=== PATIENT | female | born 1995 | race African-American/Black ===

== ENCOUNTER 2018-08-19 21:13 | Observation (INO) | payer OTHER ==
[~2018-08-19] VITALS: Ht 165.1 cm; Wt 82.2 kg
[2018-08-19 21:19] VITALS: BP 115/68
--- NOTE | 2018-08-19 21:23 | NUR ---
PER ER MD VENTURA, SANDY TO SEE IN ED.
--- NOTE | 2018-08-19 21:23 | NUR ---
23 Y/O FEMALE PRESENTS TO ED WITH C/O OF SORE THROAT X5 DAYS, EPIGASTRIC/SUPRAPUBIC ABD PAIN X2 HRS. 7/10 THROAT PAIN, 3/10 ABD PAIN. ABD PAIN NON-RADIATING. VSS. ALSO C/O NAUSEA WITHOUT VOMITING. PT STATES ABD PAIN STARTED 2 HRS AGO AND HAS NOT FEELT BABY MOVE IN THE PAST TWO HOURS BUT DID FEEL BABY MOVING PRIOR TO ABD PAIN AND NAUSEA. NO VAGINAL BLEEDING OR DISCHARGE. THROAT RED, WITH EDEMA AND EXUDATE. DR VENTURA AT BEDSIDE EVALUATING PT. CONTINUE TO MONITOR.
--- NOTE | 2018-08-19 21:25 | NUR ---
PT TAKEN TO BED 10
--- NOTE | 2018-08-19 21:38 | NUR ---
Dr. Martinez examining patient.
[2018-08-19] MEDS ORDERED: AMOXICILLIN 500 MG CAP PO ONE (21:45)
--- NOTE | 2018-08-19 22:05 | NUR ---
L&D CALLED AND NOTIFIED THAT DR VENTURA HAS DISCHARGED PT AND IS SENDING HER OVER TO L&D FOR FURTHER EVALUATION AT THIS TIME. DC PAPERS GIVEN TO PT. RX OF AMOXICILLIN GIVEN. SIDE EFFECTS EXPLAINED. PT STATES PAIN IS TOLLERABLE AT THIS TIME AND NAUSEA IS MILD. INSTRCUTED TO F/U WITH PVP AND WHEN TO RETURN TO ER. PT VERBALIZED UNDERSTANDING OF DC INSTRUCTIONS. PT ESCORTED TO L&D VIA WHEEL CHAIR BY NURSE.
--- NOTE | 2018-08-19 22:07 | NUR ---
PT TRANSFERED TO L&D AFTER SCREENING AND TREATMENT IN THE ER BY DR. Maria Isabel VENTURA
[2018-08-19] MEDS ORDERED: TERBUTALINE 1 MG/ML VIAL SUBQ SCH (22:50)
[2018-08-19 22:58] LABS: APPEARANCE,URINE CLEAR (CLEAR); BILIRUBIN,URINE NEGATIVE (NEGATIVE); BLOOD, URINE 2+ (NEGATIVE); COLOR,URINE YELLOW (YELLOW); LEUKOCYTE ESTERASE ,URINE NEGATIVE (NEGATIVE); NITRITE, URINE NEGATIVE (NEGATIVE); UGLUCOSE NEGATIVE (NEGATIVE)
[2018-08-19] MEDS ORDERED: TERBUTALINE 1 MG/ML VIAL SUBQ ONE (23:05)
[2018-08-19 23:11] LABS: BASOPHILS % (AUTO) 0.5 % (0.0-2.0); EOSINOPHILS # (AUTO) 0.1 K/uL (0-0.4); EOSINOPHILS % (AUTO) 1.2 % (0.0-4.0); HEMATOCRIT 30.1 % (36-48); HEMOGLOBIN 10.1 g/dL (12.0-16.0); LYMPHOCYTES # (AUTO) 2.5 K/uL (2.5-16.5); LYMPHOCYTES % (AUTO) 26.1 % (20.5-51.1); MEAN CORPUSCULAR HEMOGLOBIN 30 pg (27-31); MEAN CORPUSCULAR HGB CONC 34 g/dL (33-37); MEAN CORPUSCULAR VOLUME 90.1 fL (80-94); MONOCYTES # (AUTO) 1.1 K/uL (0.8-1.0); MONOCYTES % (AUTO) 11.2 % (1.7-9.3); NEUTROPHILS # (AUTO) 5.7 K/uL (1.8-7.7); PLATELET COUNT (AUTO) 252 K/uL (140-450); RED BLOOD CELL COUNT(AUTO) 3.34 MIL/uL (4.20-5.40); RED CELL DISTRIBUTION WIDTH 13.4 % (11.6-13.7); WHITE BLOOD COUNT (AUTO) 9.4 K/uL (4.8-10.8)
[2018-08-19 23:33] VITALS: BP 106/57
[2018-08-19 23:48] LABS: WBC,URINE 0-5 /HPF (0-5)
== END 2018-08-20 01:15 | disposition home or self-care (01) ==
LOC: MED 21:13 → MLD 22:19
PROVIDERS: ADMIT Obstetrics & Gynecology; ATTEND Obstetrics & Gynecology
DX: O26.893 Other specified pregnancy related conditions, third trimester (principal); R10.84 Generalized abdominal pain; O99.513 Diseases of the respiratory system complicating pregnancy, third trimester; J02.9 Acute pharyngitis, unspecified; Z3A.28 28 weeks gestation of pregnancy
CPT/HCPCS: 36415; 81001; 85025; 85379; 96372; 99282; C1758; G0378; J3105